=== PATIENT | male | born 1995 | race Caucasian/White ===

== ENCOUNTER 2018-03-12 16:59 | Emergency (ER) | payer BC, SELFPAY ==
[2018-03-12 17:06] VITALS: BP 122/76; PULSE 58; RESP 16; TEMP 36; O2SAT 100
--- NOTE | 2018-03-12 17:40 | NUR.NOTE ---
Nursing Note: Faxed Animal Bite Report form to [facility] [employer] where the incident happened. Parisa Sands Fax [phone]
--- NOTE | 2018-03-12 17:54 | ED.GENADUL_ITS ---
Discharge Plan Disposition Patient Disposition: HOME Condition: Good Discharge Details Chief Complaint: AnimalBite Clinical Impression: Dog bite of right hand, Laceration of hand Primary Care Provider: Unknown,Unknown ED Provider: Deyvi Garcia Home Meds and New Rx's Prescriptions: New amoxicillin-pot clavulanate 875-125 mg tablet 1 tab PO BID Qty: 9 RF: 0 No Action dextroamphetamine-amphetamine [Adderall] 20 mg Tablet 20 mg PO .5 DAYS A WEEK RF: 0 Discharge Instructions Instructions: Animal Bite (ED), Laceration (ED) Additional Instructions: Keep bandage in place preferably for the first 24-48 hours and then you may keep open to air as long as an clean environment otherwise keep wound clean and dry. You may use mild soap and water to gently clean the wound. You should have the sutures removed in 10 days and take antibiotic prescription until completed. Return immediately to emergency department for any signs of infection per Referrals: [facility] Emergency Dept. [Outside] (Please have sutures removed in 10 days) Primary Care Provider [Outside] Discharge Data Discharge Date/Time-TO BE ENTERED AT DEPARTURE: 03/12/18 18:12 Medical Decision Making Patient visiting friend from the area and was bitten by dog on his right hand. He states that he placed his hand down to allow the dog to sniff him and the dog bit his hand. Patient states that the dog is up to date on all of his immunizations and that he has had a tetanus within the last 2-years. Patient has a single laceration in between the third and fourth digit of the right hand on the dorsal aspect of the hand that is into the subcutaneous tissue but otherwise examination of the hand is unremarkable. Patient does have 2 other slight abrasions on the dorsal aspect. There is no significant bleeding. Wound was explored to base in bloodless field and no foreign bodies were seen and all deep structures were intact again with otherwise normal examination. Verbal consent was obtained for wound closure. Given that this was an animal bite patient was placed on Augmentin for 5 days. Patient have sutures removed in 10 days and given clear instructions to watch for signs of infection. After discussion of diagnosis and plan of care patient has no further needs, questions , or concerns and states clear understanding to return to the emergency department for any worsening symptoms. HPI General Mode of arrival: ambulatory . Date/Time Provider Initiated Documentation: 03/12/18 17:12 . Limitations to Documentation: no limitations . Information obtained by: patient and RN notes reviewed . History of Present Illness 22 year old M presents to the emergency department with the chief complaint of Dog bite, described as mild, with intensity rated at 3. Quality is described as sharp, and is localized to the right and upper extremity. Patient started experiencing this minute(s) (20) and it has been constant. No relieving factors improve symptom(s), No exacerbating factors reported . Patient notes no other symptoms.. Patient did receive the following treatments prior to arrival, none Related Data Home Medications Medication Instructions Recorded Confirmed amoxicillin-pot clavulanate 1 tab PO BID #9 tab 03/12/18 dextroamphetamine-amphetamine 20 mg PO .5 DAYS A WEEK 03/12/18 03/12/18 [Adderall] Previous Rx's Medication Instructions Recorded amoxicillin-pot clavulanate 1 tab PO BID #9 tab 03/12/18 Allergies Allergy/AdvReac Type Severity Reaction Status Date / Time No Known Allergies Allergy Unverified 03/12/18 17:10 General Stated Complaint: AnimalBite JEREMIAH: 4 Review of Systems Cardiovascular Denies syncope and Denies lightheadedness Musculoskeletal Denies deformity, Denies limited range of motion and Denies numbness Integumentary/Breasts Reports as per HPI Neurologic Denies syncope and Denies numbness PFSH Social History Smoking/Tobacco Use Status: Never Exam Const General: cooperative and no acute distress Orientation: alert, awake and oriented x3 Limitations: mental status not altered Resp Effort & Inspection: normal respiratory effort and able to speak in complete sentences Cardio Rate: regular rate Rhythm: regular rhythm Neuro General: alert, awake, oriented x3, gait normal, tone normal, moves all extremities, normal light touch, pain and propioception and no focal motor deficits Motor: no movement abnormalities noted Sensory Exam: no sensory deficits noted Extrem Right upper extremity: hand Details: neuromotor exam normal, neurosensory exam normal, tendon exam normal, vascular exam Details: radial pulse present Details : 2+, normal ROM of fingers and laceration (1cm in between third and fourth digit on the dorsal aspect of the hand) Course Vital Signs Temperature 36 C L 03/12/18 17:06 Pulse 58 L 03/12/18 17:06 Respiratory Rate 16 03/12/18 17:06 Blood Pressure 122/76 03/12/18 17:06 Pulse Oximetry 100 03/12/18 17:06 Temperature 36 C L 03/12/18 17:06 Temperature Source Skin 03/12/18 17:06 Pulse 58 L 03/12/18 17:06 Respiratory Rate 16 03/12/18 17:06 Respiratory Effort Non-Labored 03/12/18 17:06 Blood Pressure 122/76 03/12/18 17:06 Blood Pressure Position Sitting 03/12/18 17:06 Pulse Oximetry 100 03/12/18 17:06 Oxygen Delivery Method Room Air 03/12/18 17:06 Oxygen Flow Rate 0 03/12/18 17:06 Pain Level 4 03/12/18 17:06 Procedures Laceration Laceration 1: Site: hand Side (If applicable): right Size (cm): 1 Description: linear Depth: simple, single layer Local Anesthetic: Lidocaine 1% Amount of anesthesia used (mL): 2 Pre-repair: wound explored, irrigated extensively and deep structures intact Skin layer closed with: nylon Size (cm): 4-0 Number of sutures: 2 Technique: simple, interrupted
[2018-03-12] MEDS: Amoxicillin 875/Clav. 125 TAB PO (18:08)
== END 2018-03-12 18:12 | disposition home or self-care (01) ==
PROVIDERS: Emergency Provider Nurse Practitioner Family
DX: S61.451A Open bite of right hand, initial encounter (principal); W54.0XXA Bitten by dog, initial encounter
CPT/HCPCS: 12001